=== PATIENT | male | born 1985 | race African-American/Black ===

== ENCOUNTER 2018-12-02 14:41 | Emergency (ER) | payer OTHER ==
[2018-12-02] MEDS: LIDOCAINE 1% (MDV) 20 ML INJ SC (20:33)
[2018-12-02] MEDS: HYDROCODONE/APAP (5/325) TAB PO (20:55)
== END 2018-12-02 21:39 | disposition home or self-care (01) ==
LOC: FTE 14:41
DX: S01.511A Laceration without foreign body of lip, initial encounter (principal); W22.8XXA Striking against or struck by other objects, initial encounter; Y92.310 Basketball court as the place of occurrence of the external cause
CPT/HCPCS: 12001; 99283-25